=== PATIENT | male | born 1955 | race Caucasian/White ===

== ENCOUNTER → 2024-04-16 06:05 | Outpatient (REF) | payer MEDICARE, OTHER, SELFPAY ==
[2024-04-16 10:43] LABS: Urine Albumin Negative (Neg - Trace); Urine Bilirubin Negative (Negative); Urine Character Very Cloudy (Clear); Urine Color Yellow; Urine Glucose Negative (Negative); Urine Ketone Negative (Negative); Urine Leukocyte Negative (Negative); Urine Nitrite Negative (Negative); Urine Occult Blood 2+ (Negative); Urine Urobilinogen Negative (Neg - 1+)
[2024-04-16 10:56] LABS: % Basophils 1.7 % (0-2); % Eosinophils 8.5 % (0-6); % Immature Granulocytes 0.2 % (0-0.5); % Monocytes 12.5 % (1.7-9.3); % Neutrophils 44.1 % (42.2-75.2); Absolute Basophils 0.1 10^3/uL (0-0.2); Absolute Eosinophils 0.5 10^3/uL (0-0.7); Absolute Lymphocytes 1.7 10^3/uL (1.2-3.4); Absolute Monocytes 0.7 10^3/uL (0.1-0.6); Absolute Neutrophils 2.3 10^3/uL (1.4-6.5); Hematocrit 40.5 % (39.0-52.0); Hemoglobin 13.5 g/dL (13.0-18.0); Mean Corp Hgb Conc. 33.3 g/dL (33.0-37.0); Mean Corpuscular Hgb 31.2 pg (27.0-31.0); Mean Corpuscular Volume 93.5 fL (80.0-94.0); Mean Platelet Volume 9.5 fL (7.4-10.4); Nucleated Red Blood Cells % 0 % (-); Platelet Count 187 10^3/uL (130-400); Red Blood Cell Count 4.33 10^6/uL (4.70-6.10); Red Cell Dist. Width 13.2 % (11.5-14.5); White Blood Cell Count 5.3 10^3/uL (4.8-10.8)
[2024-04-16 10:57] LABS: Urine Squamous Cell 0-2 /LPF (Few)
[2024-04-16 10:58] LABS: Urine Bacteria Many (Negative); Urine Red Blood Cell 0-2 /HPF (0-2); Urine White Cell 0-2 /HPF (0-5)
[2024-04-16 11:06] LABS: ALT (SGPT) 18 U/L (0-50); AST (SGOT) 20 U/L (17-59); Albumin 3.8 g/dl (3.5-5.0); Alkaline Phosphatase 141 U/L (38-126); Blood Urea Nitrogen 20 mg/dl (9-20); Calcium 9.1 mg/dl (8.4-10.2); Carbon Dioxide 28 mmol/L (22-30); Chloride 107 mmol/L (98-107); Glucose 97 mg/dl (70-99); HDL Cholesterol 46 mg/dl; LDL Cholesterol, Calculated 113 mg/dl; Potassium 4.6 mmol/L (3.5-5.1); Sodium 140 mmol/L (135-145); Total Bilirubin 0.4 mg/dl (0.2-1.3); Total Cholesterol 190 mg/dl (50-199); Total Protein 6.5 g/dl (6.3-8.2); Triglyceride 156 mg/dl (10-149); Very Low Density Lipoprotein 31 mg/dl (0-30); eGFR > 60.00
[2024-04-16 11:12] LABS: Vitamin D, 25-OH*** 40.9 ng/mL (30-80)
[2024-04-16 11:25] LABS: PSA, Total - Screen 5.45 ng/ml (0.0-4.0); TSH 1.35 uIU/ml (0.47-4.68)
== END ==
LOC: HWLAB 06:05
PROVIDERS: ATTENDING PHYSICIAN Family Medicine
DX: E78.2 Mixed hyperlipidemia (principal); M85.89 Other specified disorders of bone density and structure, multiple sites; R74.8 Abnormal levels of other serum enzymes; Z12.5 Encounter for screening for malignant neoplasm of prostate; E55.9 Vitamin D deficiency, unspecified
CPT/HCPCS: 36415; 80053; 80061; 81003; 81015; 82306; 84443; 85025; G0103

== ENCOUNTER → 2024-06-20 06:09 | Outpatient (REF) | payer MEDICARE, OTHER, SELFPAY ==
[2024-06-20 09:55] LABS: Dilantin 10.1 ug/ml (10-20)
[2024-06-20 10:18] LABS: ALT (SGPT) 18 U/L (0-50); AST (SGOT) 21 U/L (17-59); Albumin 3.9 g/dl (3.5-5.0); Alkaline Phosphatase 140 U/L (38-126); Blood Urea Nitrogen 17 mg/dl (9-20); Calcium 8.9 mg/dl (8.4-10.2); Carbon Dioxide 27 mmol/L (22-30); Chloride 107 mmol/L (98-107); Glucose 97 mg/dl (70-99); Potassium 4.4 mmol/L (3.5-5.1); Sodium 139 mmol/L (135-145); Total Bilirubin 0.5 mg/dl (0.2-1.3); Total Protein 6.4 g/dl (6.3-8.2); eGFR > 60.00
== END ==
LOC: HWLAB 06:09
PROVIDERS: ATTENDING PHYSICIAN Nurse Practitioner Family
DX: R26.81 Unsteadiness on feet (principal); Z51.81 Encounter for therapeutic drug level monitoring; R10.32 Left lower quadrant pain
CPT/HCPCS: 36415; 74177; 80053; 80185; Q9967

== ENCOUNTER → 2024-09-11 06:35 | Day surgery (SDC) | payer MEDICARE, OTHER, SELFPAY | LOC: GI 06:35 | PROVIDERS: ATTENDING PHYSICIAN Specialist | PROC: 0DBH8ZX Excision of Cecum, Via Natural or Artificial Opening Endoscopic, Diagnostic (ICD-10-PCS; 2024-09-11) | PROC: 0DBL8ZX Excision of Transverse Colon, Via Natural or Artificial Opening Endoscopic, Diagnostic (ICD-10-PCS; 2024-09-11) | DX: Z12.11 Encounter for screening for malignant neoplasm of colon (principal); Z86.0101 Personal history of adenomatous and serrated colon polyps; D12.0 Benign neoplasm of cecum; D12.3 Benign neoplasm of transverse colon; K57.30 Diverticulosis of large intestine without perforation or abscess without bleeding; K64.8 Other hemorrhoids | CPT/HCPCS: 45385; 88305 ==

== ENCOUNTER → 2025-04-15 06:09 | Outpatient (REF) | payer MEDICARE, OTHER, SELFPAY ==
[2025-04-15 09:32] LABS: % Basophils 1.6 % (0-2); % Immature Granulocytes 0.2 % (0-0.5); % Lymphocytes 31.6 % (20.5-51.1); % Neutrophils 44.6 % (42.2-75.2); Absolute Basophils 0.1 10^3/uL (0-0.2); Absolute Eosinophils 0.5 10^3/uL (0-0.7); Absolute Lymphocytes 1.6 10^3/uL (1.2-3.4); Absolute Monocytes 0.7 10^3/uL (0.1-0.6); Absolute Neutrophils 2.2 10^3/uL (1.4-6.5); Hemoglobin 13.2 g/dL (13.0-18.0); Mean Corpuscular Hgb 30.8 pg (27.0-31.0); Mean Corpuscular Volume 93.2 fL (80.0-94.0); Mean Platelet Volume 9.2 fL (7.4-10.4); Nucleated Red Blood Cells % 0 % (-); Platelet Count 181 10^3/uL (130-400); Red Blood Cell Count 4.29 10^6/uL (4.70-6.10); Red Cell Dist. Width 13.2 % (11.5-14.5)
[2025-04-15 09:45] LABS: Urine Albumin Negative (Neg - Trace); Urine Bilirubin Negative (Negative); Urine Character Clear (Clear); Urine Color Yellow; Urine Glucose Negative (Negative); Urine Ketone Negative (Negative); Urine Leukocyte Negative (Negative); Urine Nitrite Negative (Negative); Urine Occult Blood 2+ (Negative); Urine Specific Gravity 1.015 (<1.030); Urine Urobilinogen Negative (Neg - 1+)
[2025-04-15 10:09] LABS: Vitamin D, 25-OH*** 45.4 ng/mL (30-80)
[2025-04-15 10:22] LABS: PSA, Total - Screen 7.53 ng/ml (0.0-4.0); TSH 1.29 uIU/ml (0.47-4.68)
[2025-04-15 10:48] LABS: Dilantin 17.4 ug/ml (10-20)
[2025-04-15 10:49] LABS: ALT (SGPT) 16 U/L (0-50); AST (SGOT) 18 U/L (17-59); Albumin 3.9 g/dl (3.5-5.0); Alkaline Phosphatase 134 U/L (38-126); Blood Urea Nitrogen 15 mg/dl (9-20); Calcium 8.9 mg/dl (8.4-10.2); Carbon Dioxide 26 mmol/L (22-30); Chloride 109 mmol/L (98-107); Glucose 98 mg/dl (70-99); HDL Cholesterol 48 mg/dl; LDL Cholesterol, Calculated 122 mg/dl; Potassium 4.2 mmol/L (3.5-5.1); Sodium 140 mmol/L (135-145); Total Bilirubin 0.4 mg/dl (0.2-1.3); Total Cholesterol 198 mg/dl (50-199); Total Protein 6.5 g/dl (6.3-8.2); Triglyceride 143 mg/dl (10-149); Very Low Density Lipoprotein 28 mg/dl (0-30); eGFR > 60.00
== END ==
LOC: HWLAB 06:09
PROVIDERS: ATTENDING PHYSICIAN Family Medicine
DX: E55.9 Vitamin D deficiency, unspecified (principal); E78.2 Mixed hyperlipidemia; G40.409 Other generalized epilepsy and epileptic syndromes, not intractable, without status epilepticus; M85.89 Other specified disorders of bone density and structure, multiple sites; R74.8 Abnormal levels of other serum enzymes; R97.20 Elevated prostate specific antigen [PSA]; R73.9 Hyperglycemia, unspecified; Z79.899 Other long term (current) drug therapy; E78.00 Pure hypercholesterolemia, unspecified; Z12.5 Encounter for screening for malignant neoplasm of prostate
CPT/HCPCS: 36415; 80053; 80061; 80185; 81003; 81015; 82306; 84443; 85025; G0103

== ENCOUNTER 2025-10-19 08:31 | Emergency (ER) | payer MEDICARE, OTHER, SELFPAY ==
[2025-10-19 08:33] VITALS: BP 142/77
[2025-10-19] MEDS: ROXICODONE 5 MG PO (08:50)
[2025-10-19] MEDS: TYLENOL 1000 MG PO (08:50)
--- NOTE | 2025-10-19 08:51 | ED.GENMED ---
History of Present Illness
General
Chief Complaint: Musculo-Skeletal Complaint
Source: patient
Exam Limitations: none
Time Seen by Provider: 10/19/25 08:36
History of Present Illness
History of Present Illness:
70yoM with a history of seizures on Dilantin and prior bilateral hip replacements presenting for evaluation of left hip pain that began yesterday. Patient denies any specific trauma. He was trying to get up from the couch and he used leverage with
his foot underneath the coffee table to stand up. This is the only incident that he thinks may be contributing to his symptoms. Pain is located in the buttock/lateral hip and radiates down the entire leg while walking. He took 2 doses of
ibuprofen without any relief. He is otherwise asymptomatic and denies any low back pain, fevers, difficulty urinating, paresthesias, weakness.
Past History
Past History
ED Past Medical History: Seizures and Other (Deviated septum); Negative [place]
ED Past Surgical History: Other (Noncontributory)
Social History
Tobacco: Former smoker
Alcohol: None
Drug: None
Personal:
Living: with family
Employment: Employed
Family History
Family History: Other (Noncontributory)
Phy Exam
General Physical Exam
General Presentation: well appearing and no apparent distress
General Skin: warm and dry
General Habitus: normal
General Mental: alert
ENT Exam
ENT Exam: normocephalic
Cardiovascular Exam
Cardiovascular Exam: normal peripheral pulses (2+ DP pulses bilaterally)
Pulmonary Exam
Pulmonary Exam: no respiratory distress
Neurological Exam
Neurological Exam: alert, no motor deficits and speech normal
Kavitha Coma Scale
Eye Opening: Spontaneous
Verbal Response: Oriented
Motor Response: Obeys Commands
GCS Total Score: 15
Musculoskeletal Exam
Musculoskeletal Exam: other (L hip is normal to inspection. +Tenderness near ischial tuberosity. ROM of hip is normal but extension elicits pain. No pitting edema to extremity. 2+ DP pulse and sensation intact. )
Skin Exam
Skin Exam: normal color and warm/dry
Psychiatric Exam
Psychiatric Exam: normal mood/affect
Course
Orders/Labs/Results
Orders:
Orders
10/19/25 08:45
Acetaminophen [Tylenol] 1,000 mg PO NOW STA
Oxycodone [Roxicodone] 5 mg PO NOW STA
CR Femur - Left Min 2 Vw Urgent
Comment:
Reason For Exam: L hip pain
Pelvis, 1 or 2 Views CR [CR Pelvis - 1 Or 2 Views ] Urgent
Comment:
Reason For Exam: L hip pain
Vital Signs
Initial and Last Documented VS:
Initial Vital Signs
Temp Pulse Resp BP Pulse Ox
98.2 F 80 18 142/77 98
10/19/25 08:33 10/19/25 08:33 10/19/25 08:33 10/19/25 08:33 10/19/25 08:33
Last Documented Vital Signs
Temp Pulse Resp BP Pulse Ox
98.2 F 78 16 138/74 98
10/19/25 08:33 10/19/25 10:01 10/19/25 10:01 10/19/25 10:01 10/19/25 10:01
MDM/Problems Addressed
Differential Diagnosis Includes:
70yoM here with atraumatic L hip pain x 1 day. Radiates down L leg while ambulating. Hx of prior hip replacement. VSS. Patient well appearing in no distress. L hip appears normal on exam and LLE is neurovascularly intact. Pain is elicited with ROM.
Differential diagnosis includes: muscle strain, sciatica, osteoarthritis, doubt hardware complication
X-rays of L hip and pelvis obtained which do not show any evidence of periprosthetic fracture or hardware loosening. Oxycodone and Tylenol given for pain. Pain is likely muscular but consider sciatica as pain radiates down the leg. Will treat with
prednisone. Supportive care discussed. Advised f/u with PCP and orthopedics. He was discharged in stable condition.
*Pulse Oximetry
SaO2: 98
Oxygen Mode of Delivery: Room air
Patient hypoxic: no
*Critical Care Note
Total Time (30-74mins, 75-104mins- exclusive of procedures): Not Applicable
ED Attending Note
-
Portions of this chart may have been created with voice recognition software.� Occasional wrong word or��sound alike� substitutions may have occurred due to the inherent limitations of voice recognition software.
Discharge Plan
Departure
Patient Disposition: Home (Routine Discharge)
Date of Disposition: 10/19/25
Time of Disposition: 09:38
Patient with high blood pressure during this ER visit?: Yes
Discharge Problem:
Acute pain of left hip
Instructions: Muscle, joint, and bone pain (DC)
Prescriptions:
New
prednisone 20 mg tablet
40 mg PO DAILY 5 Days Qty: 10 0RF
No Action
phenytoin sodium extended 100 MG capsule
300 mg PO HS
phenytoin sodium extended 100 MG capsule
200 mg PO DAILY
cholecalciferol (vitamin D3) 1,000 UNITS tablet
1,000 units PO DAILY
Referrals:
Naga Lim DO [Family Provider, Family Practice]
Cate Arias DO [Active, Orthopedics]
Activity Restrictions/Additional Instructions:
Take prednisone as prescribed. Apply ice to affected area. You may also take Tylenol as needed for pain.
Please follow-up with your family doctor and orthopedics. Return to the ER with any new or worsening symptoms.
Interventions
Interventions:
*Risk Screen - Suicide Last Done: 10/19/25 08:33
*General Assessment Last Done: 10/19/25 08:33
*Neglect/Abuse Screening Last Done: 10/19/25 08:33
*ED COVID-19 Vaccine History Last Done: 10/19/25 08:53
*ED Influenza Vaccine History Last Done: 10/19/25 08:53
[facility] Fall Risk Assessment Tool Last Done: 10/19/25 08:53
*Nursing Disposition Last Done: 10/19/25 10:01
ED-Musculoskeletal Assessment Last Done: 10/19/25 08:53
Discharge Date and Time
Discharge Date/Time: 10/19/25 10:02
Print Language: [id number]
[2025-10-19 10:01] VITALS: BP 138/74
== END 2025-10-19 10:02 | disposition home or self-care (01) ==
LOC: EMR 08:31
PROVIDERS: EMERGENCY PHYSICIAN Emergency Medicine; FAMILY PHYSICIAN Family Medicine
DX: M25.552 Pain in left hip (principal); Z96.643 Presence of artificial hip joint, bilateral; Z87.891 Personal history of nicotine dependence
CPT/HCPCS: 99283; 72170; 73552